=== PATIENT | male | born 1975 | race Caucasian/White ===

== ENCOUNTER 2018-05-11 18:14 | Emergency (ER) | payer MEDICAID ==
[~2018-05-11] VITALS: Ht 172.7 cm; Wt 84.2 kg
[2018-05-11 18:28] VITALS: BP 147/82; PULSE 58; RESP 16; Ht 172.7 cm; Wt 84.2 kg
[2018-05-11] MEDS ORDERED: DIPHTH/TET/ACEL PERTUSS (ADULT) 0.5 ML VIAL IM* ONE (22:30)
--- NOTE | 2018-05-12 02:28 | ERD ---
ER Documentation Chief Complaint Chief Complaint pt bib self , fell while walking and face hit boards on truck HPI Patient is a 43-year-old male who presents the ER for concerns of facial a brasion. Patient states he was walking home from the grocery store carrying a bag when he accidentally ran into a parked pickup truck which had plywood in the back of it. Patient states he was looking down while walking because he hit the plywood. Patient states he hit the plywood with the left face. Patient has small laceration below his left eye. Patient also has a small abrasion to his left lower lip. Patient denies any visual changes. Patient denies any head injury, headache, nausea, vomiting, acute confusion, excessive sleepiness or loss of consciousness. Patient denies any neck pain or back pain. Patient does not know his last tetanus vaccination per ROS All systems reviewed and are negative except as per history of present illness. Allergies Allergies: Coded Allergies: No Known Allergy (Unverified , 05/11/18) PMhx/Soc Medical and Surgical Hx: pt denies Surgical Hx Hx Neurological Disorder: Yes (SEIZURES) Hx Alcohol Use: No Hx Substance Use: No Hx Tobacco Use: No Smoking Status: Never smoker FmHx Family History: No diabetes Physical Exam Vitals Vital Signs Date Temp Pulse Resp B/P (MAP) Pulse Ox O2 O2 Flow FiO2 Time Delivery Rate 05/11/18 97.4 58 16 147/82 99 18:28 (103) Physical Exam GENERAL: Well-developed, well-nourished male. Appears in no acute distress. Speaking in full sentences. HEAD: Normocephalic, atraumatic. No deformities or ecchymosis. EYE: Pupils equal, round, and reactive to light. EOMs intact. No conjunctival erythema. No pain with EOMs. No evidence of orbital entrapment. No proptosis. No eye discharge. Orbital rims are nontender to palpation. ENT: External ear without any masses or tenderness. No hemotympanum TM visualized bilaterally, non-erythematous, non-bulging. Nasal mucosa pink with no discharge. Oropharynx is pink without any tonsillar erythema or exudates. No uvula deviation. No kissing tonsils. NECK: Supple. No meningismus. Normal ROM of the neck. LUNG: Clear to auscultation bilaterally. No rhonchi, wheezing, rales or coarse breath sounds. HEART: Regular rate and rhythm. No murmurs, rubs or gallops. EXTREMITES: Equal pulses bilaterally. No peripheral clubbing, cyanosis or edema. No unilateral leg swelling. NEUROLOGIC: Alert and oriented to person, place and time. Moving all four extremities. 5/5 strength in all extremities. Normal speech. Steady gait. SKIN: 2 cm horizontal abrasion noted below the left eye. Minimal active bleeding. small abrasion noted to the patient's left lower lip. Results 24 hrs Current Medications Medications Dose Sig/Elif Start Time Status Last (Trade) Ordered Route PRN Stop Time Admin Dose Reason Admin Diphtheria/ 0.5 ml ONCE ONCE 05/11/18 DC 05/11/18 Tetanus/Acell IM* 22:30 22:23 Pertussis 05/11/18 22:31 (Adacel) Procedures/MDM ED COURSE: The patient was stable throughout ED course. I kept the patient and/or family informed of laboratory and diagnostic imaging results throughout the ED course. DIAGNOSTIC IMAGING: Read by radiologist. Patient: [address] : 1975 Age: 43 Sex: M MR #: [id number] DOS: 05/11/18 2213 Ordering MD: TRAVIS PACHECO PA-C Location: [facility] Room/Bed: PROCEDURE: X-rays facial bones CLINICAL INDICATION: Facial pain. TECHNIQUE: AP, lateral and Ambriz projections of the facial bones are obtained. COMPARISON: None available FINDINGS: Bony architecture and mineralization are preserved. The orbits are intact. The sinuses are grossly clear. Bone architecture and mineralization are normal. No soft tissue abnormalities or radiopaque foreign bodies are present. RPTAT:HJJR IMPRESSION: No evidence for acute osseous abnormality of the facial bones. Physician Deuce Date Time Electronically viewed and signed by Physician Deuce on 05/11/2018 23:13 JR/ CC: TRAVIS PACHECO PA-C [id number] PROCEDURES: Laceration Repair: The patient was verbally consented prior to procedure. Patient was explained the risks, benefits and alternatives to this procedure. Length: 2 cm Irrigation: Thorough irrigation was performed with normal saline and adequate pressure. Inspection: The wound was thoroughly explored and no foreign bodies, deep tissue, tendon or structural injuries were noted. Anesthesia: none Repair: The area was prepared and draped in the usual sterile manner with the wound exposed. Dermabond was placed with good wound closure and wound approximation. Bleeding was minimal. The patient tolerated the procedure well with no complications. The patient was neurovascularly intact post-procedure. Post-procedural wound care was discussed with the patient. MEDICATIONS GIVEN: Tdap Patient tolerated medication well with no adverse reactions. Patient reported improvement in pain. MEDICAL DECISION MAKING: This is a 43-year-old male who presents the ER for concerns of a facial abrasion after he had plywood while walking home from the grocery store. Vital signs were reviewed. Patient was afebrile. Tetanus vaccination was given today. Wound was cleaned and Dermabond was placed over for wound closure. Patient tolerated well. Patient x-ray was unremarkable. Low suspicion for orbital rim fracture or facial bone fracture. Low suspicion for orbital muscle entrapment. Patient was nontoxic, [id number] prior to discharge. DISCHARGE: At this time, the patient is stable for discharge and outpatient management. Post-procedural wound care was discussed with the patient. I have instructed the patient to promptly return to the ER for any new or worsening symptoms including increasing pain, fever, warmth, redness or swelling. The patient and/or family expressed understanding of and agreement with this plan. All questions were answered. Home care instructions were provided. Disclaimer: Inadvertent spelling and grammatical errors are likely due to EHR/dictation software use and do not reflect on the overall quality of patient care. Also, please note that the electronic time recorded on this note does not necessarily reflect the actual time of the patient encounter. Departure Diagnosis: Primary Impression: Facial pain Additional Impression: Abrasion Condition: Fair Patient Instructions: Abrasion Referrals: COMMUNITY CLINICS YOU HAVE RECEIVED A MEDICAL SCREENING EXAM AND THE RESULTS INDICATE THAT YOU DO NOT HAVE A CONDITION THAT REQUIRES URGENT TREATMENT IN THE EMERGENCY DEPARTMENT. FURTHER EVALUATION AND TREATMENT OF YOUR CONDITION CAN WAIT UNTIL YOU ARE SEEN IN YOUR DOCTORS OFFICE WITHIN THE NEXT 1-2 DAYS. IT IS YOUR RESPONSIBILITY TO MAKE AN APPOINTMENT FOR FOLOW-UP CARE. IF YOU HAVE A PRIMARY DOCTOR --you should call your primary doctor and schedule an appointment IF YOU DO NOT HAVE A PRIMARY DOCTOR YOU CAN CALL OUR PHYSICIAN REFERRAL HOTLINE AT IF YOU CAN NOT AFFORD TO SEE A PHYSICIAN YOU CAN CHOSE FROM THE FOLLOWING [facility] [address] [facility] [address] [facility] [address] [facility] [address] [facility] [address] [facility]. [facility] [address] [facility]. [facility] YOU HAVE RECEIVED A MEDICAL SCREENING EXAM AND THE RESULTS INDICATE THAT YOU DO NOT HAVE A CONDITION THAT REQUIRES URGENT TREATMENT IN THE EMERGENCY DEPARTMENT. FURTHER EVALUATION AND TREATMENT OF YOUR CONDITION CAN WAIT UNTIL YOU ARE SEEN IN YOUR DOCTORS OFFICE WITHIN THE NEXT 1-2 DAYS. IT IS YOUR RESPONSIBILITY TO MAKE AN APPOINTMENT FOR FOLOW-UP CARE. IF YOU HAVE A PRIMARY DOCTOR --you should call your primary doctor and schedule and appointment IF YOU DO NOT HAVE A PRIMARY DOCTOR YOU CAN CALL OUR PHYSICIAN REFERRAL HOTLINE AT . IF YOU CAN NOT AFFORD TO SEE A PHYSICIAN YOU CAN CHOSE FROM THE FOLLOWING [facility]: [facility] [address] [place] [address] [facility] [address] [place] [address] [facility] [address] [place] [address] Additional Instructions: Llame al doctor MAANA y mark kris BUCK PARA DENTRO DE 1-2 HAYNES.Dgale a la secretaria que nosotros le instruimos hacer esta buck.Avise o llame si paz condicin se empeora antes de la buck. Regresa aqui si peor o no mejor. TRAVIS PACHECO PA-C May 12, 2018 02:28
== END 2018-05-12 | disposition home or self-care (01) ==
LOC: FTE 18:14
DX: S01.112A Laceration without foreign body of left eyelid and periocular area, initial encounter (principal); W01.198A Fall on same level from slipping, tripping and stumbling with subsequent striking against other object, initial encounter; Y92.9 Unspecified place or not applicable; Z23 Encounter for immunization
CPT/HCPCS: 12011; 70140; 90471; 90715; Z7502